=== PATIENT | male | born 1995 | race Caucasian/White ===

== ENCOUNTER 2022-01-23 16:16 | Emergency (ER) | payer OTHER ==
[~2022-01-23] VITALS: Ht 170.2 cm; Wt 79.4 kg
[2022-01-23 16:16] VITALS: BP_SYST 140
--- NOTE | 2022-01-23 16:16 | NUR ---
Patient brought in by colleagues at work because of stumbling into [facility]. Patient received xray of right ankle at this time.
--- NOTE | 2022-01-23 16:25 | NUR ---
Patient to ER bed 7 to gown for evaluation. Side rails up. Report given to ERIC LANCE.
--- NOTE | 2022-01-23 16:27 | NUR ---
Pt presents to the ER bib bls for CC ankle swelling. Pt states was walking down a hillside and stepped into a mole hole twisting ankle. Moderate swelling, skin intact, cap refill <3 sec.
--- NOTE | 2022-01-23 16:35 | NUR ---
ER at bedside examining patient.
[2022-01-23] MEDS ORDERED: IBUP-1971 PO (16:49)
[2022-01-23 16:52] VITALS: BP_SYST 140
--- NOTE | 2022-01-23 16:57 | NUR ---
Patient given written and verbal discharge instructions and verbalizes understanding. ER MD discussed with patient the results and treatment provided. Patient in stable condition. ID arm band removed. Rx of Ibuprofen given. Patient educated on pain management and to follow up with PMD. Opportunity for questions provided and answered. Medication side effect fact sheet provided. Work release note provided for 72 hours follow up with PCP.
--- NOTE | 2022-01-23 17:46 | NUR ---
Patient given written and verbal discharge instructions and verbalizes understanding. ER MD discussed with patient the results and treatment provided. Patient in stable condition. ID arm band removed. Patient has registration and worker's comp paperwork completed. No Rx given. Patient educated on pain management and to follow up with PMD. Pain Scale 3/10. Opportunity for questions provided and answered. Medication side effect fact sheet provided.
== END 2022-01-23 16:55 | disposition home or self-care (01) ==
LOC: SED 16:16
DX: S93.401A Sprain of unspecified ligament of right ankle, initial encounter (principal); M25.571 Pain in right ankle and joints of right foot; Z79.899 Other long term (current) drug therapy; X08.8XXA Exposure to other specified smoke, fire and flames, initial encounter; Y93.89 Activity, other specified; Y92.89 Other specified places as the place of occurrence of the external cause; Y99.8 Other external cause status
CPT/HCPCS: 99283